=== PATIENT | male | born 1935 | race Caucasian/White ===

== ENCOUNTER 2017-07-06 16:51 | Observation (INO) | payer MEDICARE, BC, SELFPAY ==
[2017-07-06] VITALS (8 sets, daily range): BP systolic 152–193; BP diastolic 87–103; PULSE 53–73; RESP 16–22; TEMP 36.7–36.9; O2SAT 97–100; BMI 22.4; BMI 22.5; BMI 21.6
--- NOTE | 2017-07-06 17:01 | EKG12_ITS ---
Test Reason : CP Blood Pressure : / mmHG Vent. Rate : 071 BPM Atrial Rate : 071 BPM P-R Int : 172 ms QRS Dur : 080 ms QT Int : 388 ms P-R-T Axes : 063 -20 039 degrees QTc Int : 421 ms Normal sinus rhythm Normal ECG Confirmed by LOUIE FOSTER, JOSE G ([id number]), associate entertainment editor RENÉE LUNDBERG ([id number]) on 07/08/2017 1:55:51 PM Referred By: KEHINDE/ELIAZAR Confirmed By:JOSE G PALMA MD
--- NOTE | 2017-07-06 17:05 | ED.VISSUMM ---
- ER Visit Summary Date of Service: 07/06/17 Chief Complaint: Chest pain History of Present Illness: The patient is a 81 M who has no medical problems on no medication has not seen a physician in 15 years. Is a non-smoker. He lives with his . He states he was walking back to the house 2 days ago. The walk back is 1/2 mile incline. At the end of the walk he developed a sensation in his upper mid chest with no radiation or associated symptoms that lasted 30-60 minutes. Yesterday during same walk he had to stop because he felt fatigued. At the end of 1/2 mile he again developed a discomfort funny feeling in his chest that lasted approximately 1 hour. Today he went out to [place] and after 5-10 minutes he developed chest discomfort again with no associated symptoms or radiation. Patient denies any fever, chills night sweats. Patient denies any weight gain or weight loss. Patient denies any ocular, visual or auditory symptoms. Patient denies cough shortness of breath difficulty breathing. There is no history of PE or DVT. He has no history of any leg pain, swelling or discoloration. He denies nausea, vomiting or diarrhea. He denies black or maroon stool. He is on vitamins and does not take aspirin. He is presently having some sensation in his chest. He has no other symptoms. Physical Examination: Vitals remarkable for blood pressure 193/87 otherwise vital signs are normal. HEENT exam is unremarkable. Heart is regular without murmur, gallop or rub. S1 and S2 are normal. Lungs are clear to auscultation with good movement of air bilaterally. Abdomen is soft nontender with no palpable subtle mass abdominal bruit. There is no asymmetry, swelling, discoloration, leg vein distention, palpable cords or tenderness along the distribution of the deep venous system. Neuro exam is nonfocal. Test Results: EKG normal sinus rhythm rate of 71. Two-view chest x-ray is unremarkable. CBC, BMP and troponin are all normal. Emergency Department Course and Treatment: Evaluate patient's chest pain EKG, chest x-ray and blood work was obtained. He did receive aspirin. Dr. Clarke was contacted to see if he would see patient since this is concerning for exertional chest pain and may represent ischemia versus discomfort secondary to elevated blood pressure. Recent blood pressure is 171/91, 1745. Treatment Plan: Dr. Clarke was made aware patient. He states he would see Mr. Marin. Disposition: 23 observation PCU Impression: 1. Exertional chest pain 2. Hypertension new diagnosis This note was generated with Mobile Messenger dictation software. It may contain incorrect words, spelling, and punctuation that were not noted in review of the chart prior to signing ED Disposition - Plan for ED Patient: Chief Complaint: Chest Pain Referrals: Care Physician,No Primary [Primary Care Provider] -
[2017-07-06] MEDS: Aspirin 81 MG TAB.CHEW 324 MG PO (17:07)
--- NOTE | 2017-07-06 17:10 | RAD_ITS ---
STUDY: X-RAY CHEST REASON FOR EXAM: Male, 81 years old. Chest pain TECHNIQUE: Frontal and lateral views of the chest were obtained. COMPARISON: None. FINDINGS: The lungs are hyperinflated. There are no focal airspace opacities. There is no demonstrated pleural abnormality. The cardiac silhouette is normal in size. The mediastinum and hilar regions are unremarkable. Normal visualized pulmonary arteries. There is atherosclerotic calcification of the thoracic aorta. There are diffuse degenerative changes of the visualized spine. There are degenerative changes in both shoulders. There is no demonstrated abnormality of the visualized upper abdomen. RAD/Chest PA and Lateral IMPRESSION: No acute cardiopulmonary abnormalities. Hyperinflation suggests COPD. Electronically Signed: Leanna Kline MD at 17:35 EST Tel Direct: [phone], Service support ,
[2017-07-06 17:20] LABS: Absolute Lymphocyte Count 1.76 X10^3/ul (0.83-4.51); Absolute Neutrophil Count 3.8 X10^3/uL (2.0-7.7); Basophil# 0.02 X10^3/uL; Basophil% 0.3 % (0-1); Eosinophil# 0.03 X10^3/uL; Eosinophils% 0.5 % (0-5); Hematocrit 43.1 % (40-54); Hemoglobin 14.7 g/dl (13.0-16.5); Lymphocyte # 1.76 X10^3/ul (4.0); Lymphocyte % 29.6 % (19-41); Mean Corp Hgb Conc 34.1 g/gl (32-36); Mean Corpuscular Hgb 31.3 pg (27.0-32.0); Mean Corpuscular Volume 91.7 fL (80-94); Mean Platelet Vol. 9.6 fl (6.2-12.0); Monocyte# 0.32 X10^3/uL; Monocyte% 5.4 % (0-10); Platelet Count 203 K/mm3 (150-450); RBC Distribution Width CV 14.9 % (11.6-14.6); RBC Distribution Width SD 48.7 fl (35.1-43.9); White Blood Count 5.9 K/mm3 (4.4-11.0)
[2017-07-06 17:25] LABS: POSITIVE COUNT NO; POSITIVE DIFFERENTIAL NO; POSITIVE MORPHOLOGY NO
[2017-07-06 17:40] LABS: Anion Gap 4 (5-15); BUN 13 mg/dL (7-18); BUN/Creat Ratio 13.1 RATIO (10-20); Calcium,Total 8.8 mg/dL (8.5-10.1); Chloride 106 mmol/L (98-107); EST Glomerular Filtration Rate 76 mL/min (>60); Est Glom Filt Rate - Afr Amer 92 mL/min (>60); Estimated Creatinine Clearance 55.58 ml/min; Glucose 102 mg/dL (74-106); Potassium 4.1 mmol/L (3.5-5.1); Sodium Level 139 mmol/L (136-145)
--- NOTE | 2017-07-06 18:20 | ECHOD_ITS ---
Reason For Study: CHEST PAIN Procedure This was a 2D Doppler, Color Flow transthoracic echocardiogram. Exam performed portable in patient room. Left Ventricle Normal LV size. Left ventricular systolic function is normal. The estimated ejection fraction is 65 %. Transmitral and pulmonary venous doppler flow suggestive of impaired relaxation of left ventricle. Transmitral diastolic flow velocities suggest mild (stage 1) diastolic dysfunction (reversed pattern). No regional wall motion abnormalities noted. Right Ventricle Normal RV size. Normal systolic function. Atria Normal left atrium. Normal right atrium. Mitral Valve Mild diffuse mitral valve thickening. Mild (1+) eccentric mitral valve insufficiency. Tricuspid Valve Normal tricuspid valve. Mild (1+) tricuspid valve insufficiency. Pulmonary artery systolic pressure is 29 mmHg. Aortic Valve Normal aortic valve. Trisinus/trileaflet aortic valve. Pulmonic Valve Normal pulmonic valve. Great Vessels Mildly dilated aortic root. The pulmonary artery is normal size. Inferior vena cava collapse with respiration. Pericardium/Pleural No pericardial effusion. MMode/2D Measurements & Calculations LVIDd: 4.8 cm IVSd: 0.90 cm Ao root diam: 3.8 cm LVIDs: 3.3 cm LVPWd: 1.1 cm LA dimension: 3.6 cm RVDd: 4.3 cm FS: 32.3 % LAV(MOD-bp): 55.2 ml EDV(MOD-sp4): 132.7 ml SV(MOD-sp4): 71.8 ml LAV(MOD-bp) Indexed: 30.5 ml/m2 ESV(MOD-sp4): 60.8 ml LAV(MOD-sp2): 31.5 ml EF(MOD-sp4): 54.1 % LAV(MOD-sp4): 77.3 ml LA A4 area: 22.7 cm2 RA A4 area: 18.5 cm2 Doppler Measurements & Calculations MV E max kostas: 53.2 cm/sec Ao V2 max: 102.7 cm/sec LV V1 max: 71.9 cm/sec MV A max kostas: 72.3 cm/sec Ao max P.2 mmHg LV V1 max P.1 mmHg MV E/A: 0.74 PA V2 max: 100.0 cm/sec PI end-d kostas: 95.5 cm/sec TR max kostas: 246.8 cm/sec TR max P.4 mmHg Interpretation Summary Normal LV size. Left ventricular systolic function is normal. The estimated ejection fraction is 65 %. Transmitral diastolic flow velocities suggest mild (stage 1) diastolic dysfunction (reversed pattern). Mildly dilated aortic root. Mild (1+) tricuspid valve insufficiency. Ordering Physician: Aurelio Clarke Performed By: Kendra Rubio, CHERRICS, RVT
--- NOTE | 2017-07-06 18:26 | PCM.CONS.C ---
Reason for Consult Date of Consultation: 07/06/17 Reason for Consultation: Chest discomfort History of Present Illness: The patient is a 81 year old M who has no medical problems on no medication has not seen a physician in 15 years. He states he was walking back to the house 2 days ago. The walk back is 1/2 mile incline. At the end of the walk he developed a sensation in his upper mid chest with no radiation or associated symptoms that lasted 30-60 minutes. Yesterday during same walk he had to stop because he felt fatigued. At the end of 1/2 mile he again developed a discomfort funny feeling in his chest that lasted approximately 1 hour. Today he went out to [employer] [place] and after 5-10 minutes he developed chest discomfort again with no associated symptoms or radiation. The above he presented to the emergency room where he was evaluated his electrocardiogram demonstrated normal sinus rhythm with a rate of 71 bpm and no acute changes but his blood pressure was noted to be elevated over 1 80 mmHg. Patient denies any fever, chills night sweats. Patient denies any weight gain or weight loss. Patient denies any ocular, visual or auditory symptoms. Patient denies cough shortness of breath difficulty breathing. There is no history of PE or DVT. He has no history of any leg pain, swelling or discoloration. He denies nausea, vomiting or diarrhea. He denies black or maroon stool. He is on vitamins and does not take aspirin. At This time he is pain-free and not having any symptoms. Past Medical History Allergies/Adverse Reactions: Allergies No Known Allergies Allergy (Verified 07/06/17 16:52) Home Medications: Ambulatory Orders Medication Instructions Recorded NK [NK] 07/06/17 - *Family History Maternal History Items: No pertinent history Smoking Status: Never smoker Alcohol: Occasional Drugs: None Review of Systems - Review of Systems General: Denies: Fever, Night Sweats, Fatigue Cardiovascular: Reports: Chest Discomfort with Exertion, Chest Pressure. Denies: Chest Discomfort, Shortness of Breath, Orthopnea, PND, Peripheral Edema, Palpitations, Lightheadedness, Dizziness, Near Syncope, Syncope Respiratory: Denies: Cough, Sputum Production, Hemoptysis Gastrointestinal: Denies: Hematemesis, Hematochezia, Melena Genitourinary: Denies: Dysuria, Hematuria Skin: Denies: Rash Subjectve: Pleasant jovial gentleman in no apparent distress. Objective: Vital Signs Temp Pulse Resp BP Pulse Ox 98.1 F 59 L 20 H 182/88 H 100 07/06/17 16:52 07/06/17 17:51 07/06/17 17:51 07/06/17 17:51 07/06/17 17:51 Oxygen Flow Rate 2 Oxygen Delivery Method Nasal Cannula Weight: 152 lb 1.903 oz Body Mass Index (BMI) 22.4 General: Awake, Alert, Oriented x 3 HEENT: PERRL, EOMI, Sclera Non Icteric Neck: Supple, Good ROM, No Lymph Node Enlargement Lungs: Clear to auscultation Cardiovascular: Regular Rhythm, Normal S1, Normal S2, No Murmurs, No Rubs, No Gallops Vascular: No Carotid Bruits, Normal Femoral Pulses, Normal Radial Pulses, Normal Dorsalis Pedal Pulse, Normal Posterior Tibial Pulses Abdomen: Bowel Sounds Present, Soft, Non Tender, No HSM, No Organomegaly Extremities: No Cyanosis, No Clubbing, No edema Neurological: No Focal Motor or Sensory Deficit 07/06/17 16:55: WBC 5.9, RBC 4.70, Hgb 14.7, Hct 43.1, MCV 91.7, MCH 31.3, MCHC 34.1, RDW 14.9 H, RDW Differential 48.7 H, Plt Count 203, MPV 9.6, Immature Gran % (Auto) 0.200, Neut % (Auto) 64.0, Lymph % (Auto) 29.6, [place] % (Auto) 5.4, Eos % (Auto) 0.5, Baso % (Auto) 0.3, Absolute Neuts (auto) 3.8, Total Counted Not Reportable 07/06/17 16:55: Sodium 139, Potassium 4.1, Chloride 106, Carbon Dioxide 29.0, Anion Gap 4 L, BUN 13, Creatinine 1.00, Est GFR (MDRD) Af Amer 92, Est GFR (MDRD) Non-Af 76, BUN/Creatinine Ratio 13.1, Glucose 102, Calcium 8.8, Troponin I < 0.02 Rhythm: EKG: Normal sinus rhythm with no acute changes rate of 71 bpm Assessment/Plan 1. Chest discomfort He presents with chest discomfort the etiology of which is unknown. He also is noted to have markedly elevated blood pressure and this could account for some of his symptoms. Recommendation at this time would be to start him on an BETH inhibitor and get his blood pressure down obtain cardiac enzymes to rule out myocardial infarction start him on aspirin and clopidogrel and perform an exercise stress test in the morning if his cardiac enzymes are normal. I have discussed the above with him the risks benefits and alternatives and he understands and agrees to proceed. 2. Hypertension To have newly diagnosed hypertension I would aggressively treating the above with antihypertensive medication and then making a decision in a.m. Thank you for allowing me to participate in the care of your patient. Please don't hesitate to call if any issues arise
--- NOTE | 2017-07-06 18:31 | CON.PCM_ITS ---
Reason for Consult Date of Consultation: 07/06/17 Reason for Consultation: Chest discomfort History of Present Illness: The patient is a 81 year old M who has no medical problems on no medication has not seen a physician in 15 years. He states he was walking back to the house 2 days ago. The walk back is 1/2 mile incline. At the end of the walk he developed a sensation in his upper mid chest with no radiation or associated symptoms that lasted 30-60 minutes. Yesterday during same walk he had to stop because he felt fatigued. At the end of 1/2 mile he again developed a discomfort funny feeling in his chest that lasted approximately 1 hour. Today he went out to [place] and after 5-10 minutes he developed chest discomfort again with no associated symptoms or radiation. The above he presented to the emergency room where he was evaluated his electrocardiogram demonstrated normal sinus rhythm with a rate of 71 bpm and no acute changes but his blood pressure was noted to be elevated over 1 80 mmHg. Patient denies any fever, chills night sweats. Patient denies any weight gain or weight loss. Patient denies any ocular, visual or auditory symptoms. Patient denies cough shortness of breath difficulty breathing. There is no history of PE or DVT. He has no history of any leg pain, swelling or discoloration. He denies nausea, vomiting or diarrhea. He denies black or maroon stool. He is on vitamins and does not take aspirin. At This time he is pain-free and not having any symptoms. Past Medical History Allergies/Adverse Reactions: Allergies No Known Allergies Allergy (Verified 07/06/17 16:52) Home Medications: Ambulatory Orders Medication Instructions Recorded NK [NK] 07/06/17 - *Family History Maternal History Items: No pertinent history Smoking Status: Never smoker Alcohol: Occasional Drugs: None Review of Systems - Review of Systems General: Denies: Fever, Night Sweats, Fatigue Cardiovascular: Reports: Chest Discomfort with Exertion, Chest Pressure. Denies : Chest Discomfort, Shortness of Breath, Orthopnea, PND, Peripheral Edema, Palpitations, Lightheadedness, Dizziness, Near Syncope, Syncope Respiratory: Denies: Cough, Sputum Production, Hemoptysis Gastrointestinal: Denies: Hematemesis, Hematochezia, Melena Genitourinary: Denies: Dysuria, Hematuria Skin: Denies: Rash Subjectve: Pleasant jovial gentleman in no apparent distress. Objective: Vital Signs Temp Pulse Resp BP Pulse Ox 98.1 F 59 L 20 H 182/88 H 100 07/06/17 16:52 07/06/17 17:51 07/06/17 17:51 07/06/17 17:51 07/06/17 17:51 Oxygen Flow Rate 2 Oxygen Delivery Method Nasal Cannula Weight: 152 lb 1.903 oz Body Mass Index (BMI) 22.4 General: Awake, Alert, Oriented x 3 HEENT: PERRL, EOMI, Sclera Non Icteric Neck: Supple, Good ROM, No Lymph Node Enlargement Lungs: Clear to auscultation Cardiovascular: Regular Rhythm, Normal S1, Normal S2, No Murmurs, No Rubs, No Gallops Vascular: No Carotid Bruits, Normal Femoral Pulses, Normal Radial Pulses, Normal Dorsalis Pedal Pulse, Normal Posterior Tibial Pulses Abdomen: Bowel Sounds Present, Soft, Non Tender, No HSM, No Organomegaly Extremities: No Cyanosis, No Clubbing, No edema Neurological: No Focal Motor or Sensory Deficit 07/06/17 16:55: WBC 5.9, RBC 4.70, Hgb 14.7, Hct 43.1, MCV 91.7, MCH 31.3, MCHC 34.1, RDW 14.9 H, RDW Differential 48.7 H, Plt Count 203, MPV 9.6, Immature Gran % (Auto) 0.200, Neut % (Auto) 64.0, Lymph % (Auto) 29.6, [place] % (Auto) 5.4 , Eos % (Auto) 0.5, Baso % (Auto) 0.3, Absolute Neuts (auto) 3.8, Total Counted Not Reportable 07/06/17 16:55: Sodium 139, Potassium 4.1, Chloride 106, Carbon Dioxide 29.0, Anion Gap 4 L, BUN 13, Creatinine 1.00, Est GFR (MDRD) Af Amer 92, Est GFR (MDRD ) Non-Af 76, BUN/Creatinine Ratio 13.1, Glucose 102, Calcium 8.8, Troponin I < 0.02 Rhythm: EKG: Normal sinus rhythm with no acute changes rate of 71 bpm Assessment/Plan 1. Chest discomfort He presents with chest discomfort the etiology of which is unknown. He also is noted to have markedly elevated blood pressure and this could account for some of his symptoms. Recommendation at this time would be to start him on an BETH inhibitor and get his blood pressure down obtain cardiac enzymes to rule out myocardial infarction start him on aspirin and clopidogrel and perform an exercise stress test in the morning if his cardiac enzymes are normal. I have discussed the above with him the risks benefits and alternatives and he understands and agrees to proceed. 2. Hypertension To have newly diagnosed hypertension I would aggressively treating the above with antihypertensive medication and then making a decision in a.m. Thank you for allowing me to participate in the care of your patient. Please don't hesitate to call if any issues arise
[2017-07-06] MEDS: Lisinopril 20 MG Tablet PO (19:55)
[2017-07-06] MEDS: Clopidogrel Bisulfate 300 MG Tablet PO (19:55)
[2017-07-07] VITALS (7 sets, daily range): BP systolic 115–152; BP diastolic 65–82; PULSE 46–88; RESP 14–16; TEMP 35.9–36.8; O2SAT 97–100
[2017-07-07 05:13] LABS: Absolute Lymphocyte Count 1.27 X10^3/ul (0.83-4.51); Absolute Neutrophil Count 2.9 X10^3/uL (2.0-7.7); Basophil# 0.03 X10^3/uL; Basophil% 0.6 % (0-1); Eosinophil# 0.06 X10^3/uL; Eosinophils% 1.3 % (0-5); Hematocrit 41.7 % (40-54); Hemoglobin 13.8 g/dl (13.0-16.5); Lymphocyte # 1.27 X10^3/ul (4.0); Lymphocyte % 27.3 % (19-41); Mean Corp Hgb Conc 33.1 g/gl (32-36); Mean Corpuscular Hgb 30.5 pg (27.0-32.0); Mean Corpuscular Volume 92.1 fL (80-94); Mean Platelet Vol. 9.5 fl (6.2-12.0); Monocyte# 0.36 X10^3/uL; Monocyte% 7.7 % (0-10); Neutrophil # 2.94 X10^3/uL (2.7-7.7); Neutrophil % 63.1 % (47-70); Platelet Count 174 K/mm3 (150-450); RBC Distribution Width SD 50.5 fl (35.1-43.9); Red Blood Count 4.53 M/mm3 (4.6-6.2); White Blood Count 4.7 K/mm3 (4.4-11.0)
[2017-07-07] MEDS: Aspirin E.C. 81 MG Tablet PO (05:13)
[2017-07-07] MEDS: Lisinopril 20 MG Tablet PO (05:13)
[2017-07-07] MEDS: 0.9% NaCl Peripheral Flush Adult/Peds IV (05:13)
[2017-07-07 05:18] LABS: POSITIVE COUNT NO; POSITIVE DIFFERENTIAL NO; POSITIVE MORPHOLOGY NO
[2017-07-07 05:22] LABS: Anion Gap 8 (5-15); BUN 12 mg/dL (7-18); BUN/Creat Ratio 13.6 RATIO (10-20); Calcium,Total 8.6 mg/dL (8.5-10.1); Chloride 103 mmol/L (98-107); Creatinine, Serum 0.88 mg/dL (0.70-1.30); EST Glomerular Filtration Rate 88 mL/min (>60); Est Glom Filt Rate - Afr Amer 106 mL/min (>60); Estimated Creatinine Clearance 60.79 ml/min; Glucose 86 mg/dL (74-106); Potassium 3.8 mmol/L (3.5-5.1); Sodium Level 139 mmol/L (136-145)
[2017-07-07 05:27] LABS: International Normalized Ratio 1.1; Prothrombin Time (Protime)PT. 14.1 SECONDS (11.7-14.9)
[2017-07-07 05:28] LABS: Partial Thromboplast Time 28.6 Seconds (24.1-36.2)
--- NOTE | 2017-07-07 05:55 | EKG12_ITS ---
Test Reason : MORNING EKG Blood Pressure : / mmHG Vent. Rate : 053 BPM Atrial Rate : 053 BPM P-R Int : 200 ms QRS Dur : 084 ms QT Int : 458 ms P-R-T Axes : 055 006 027 degrees QTc Int : 429 ms Sinus bradycardia Otherwise normal ECG When compared with ECG of 06-JUL-2017 16:55, MANUAL COMPARISON REQUIRED, DATA IS UNCONFIRMED Confirmed by LOUIE FOSTER, JOSE G ([id number]), story editor RENÉE LUNDBERG ([id number]) on 07/08/2017 2:46:47 PM Referred By: Confirmed By:JOSE G PALMA MD
--- NOTE | 2017-07-07 07:11 | PN.CARD_ITS ---
Subjectve: The patient was seen and evaluated. He has had no chest discomfort since last night. Objective: Vital Signs Temp Pulse Resp BP Pulse Ox 98.2 F 62 16 117/82 H 100 07/07/17 05:15 07/07/17 05:15 07/07/17 05:15 07/07/17 05:15 07/07/17 05:15 Oxygen Delivery Method Room Air Weight: 146 lb 6.4 oz Body Mass Index (BMI) 21.6 Intake and Output for Last 24 Hours 07/05/17 07/06/17 07/07/17 23:59 23:59 23:59 Intake Total 560 / 560 Balance 560 / 560 General: Awake, Alert, Oriented x 3 HEENT: PERRL, EOMI, Sclera Non Icteric Neck: Supple, Good ROM, No Lymph Node Enlargement Lungs: Clear to auscultation Cardiovascular: Regular Rhythm, Normal S1, Normal S2, No Murmurs, No Rubs, No Gallops Vascular: No Carotid Bruits, Normal Femoral Pulses, Normal Radial Pulses, Normal Dorsalis Pedal Pulse, Normal Posterior Tibial Pulses Abdomen: Bowel Sounds Present, Soft, Non Tender, No HSM, No Organomegaly Extremities: No Cyanosis, No Clubbing, No edema Neurological: No Focal Motor or Sensory Deficit 07/06/17 20:39: Troponin I < 0.02 07/07/17 01:08: Troponin I < 0.02 07/07/17 04:40: WBC 4.7, RBC 4.53 L, Hgb 13.8, Hct 41.7, MCV 92.1, MCH 30.5, MCHC 33.1, RDW 15.0 H, RDW Differential 50.5 H, Plt Count 174, MPV 9.5, Immature Gran % (Auto) 0.000, Neut % (Auto) 63.1, Lymph % (Auto) 27.3, [place] % ( Auto) 7.7, Eos % (Auto) 1.3, Baso % (Auto) 0.6, Absolute Neuts (auto) 2.9, Total Counted Not Reportable 07/07/17 04:40: PT 14.1, INR 1.1, APTT 28.6 07/07/17 04:40: Sodium 139, Potassium 3.8, Chloride 103, Carbon Dioxide 28.0, Anion Gap 8, BUN 12, Creatinine 0.88, Est GFR (MDRD) Af Amer 106, Est GFR (MDRD ) Non-Af 88, BUN/Creatinine Ratio 13.6, Glucose 86, Calcium 8.6 Rhythm: EKG: Normal sinus rhythm Assessment/Plan 1. Chest discomfort He presents with chest discomfort the etiology of which is unknown. He also was noted to have markedly elevated blood pressure and this could account for some of his symptoms. Recommendation at this time would be to start him on an BETH inhibitor and get his blood pressure down obtain cardiac enzymes to rule out myocardial infarction start him on aspirin and clopidogrel and perform an exercise stress test in the morning if his cardiac enzymes are normal. Stress test is scheduled for this morning and depending on the results further recommendations will be made. 2. Hypertension His blood pressure this morning appears to be excellent and we will continue to monitor him. Thank you for allowing me to participate in the care of your patient. Please don't hesitate to call if any issues arise
--- NOTE | 2017-07-07 09:08 | PCM.PN.CARD ---
Subjectve: patient seen and evaluated Objective: Vital Signs Temp Pulse Resp BP Pulse Ox 98.2 F 62 16 117/82 H 100 07/07/17 05:15 07/07/17 05:15 07/07/17 05:15 07/07/17 05:15 07/07/17 05:15 Oxygen Delivery Method Room Air Weight: 146 lb 6.4 oz Body Mass Index (BMI) 21.6 Intake and Output for Last 24 Hours 07/05/17 07/06/17 07/07/17 23:59 23:59 23:59 Intake Total 560 / 560 Balance 560 / 560 General: Awake, Alert, Oriented x 3 HEENT: PERRL, EOMI, Sclera Non Icteric Neck: Supple, Good ROM, No Lymph Node Enlargement Lungs: Clear to auscultation Cardiovascular: Regular Rhythm, Normal S1, Normal S2, No Murmurs, No Rubs, No Gallops Vascular: No Carotid Bruits, Normal Femoral Pulses, Normal Radial Pulses, Normal Dorsalis Pedal Pulse, Normal Posterior Tibial Pulses Abdomen: Bowel Sounds Present, Soft, Non Tender, No HSM, No Organomegaly Extremities: No Cyanosis, No Clubbing, No edema Neurological: No Focal Motor or Sensory Deficit 07/06/17 20:39: Troponin I < 0.02 07/07/17 01:08: Troponin I < 0.02 07/07/17 04:40: WBC 4.7, RBC 4.53 L, Hgb 13.8, Hct 41.7, MCV 92.1, MCH 30.5, MCHC 33.1, RDW 15.0 H, RDW Differential 50.5 H, Plt Count 174, MPV 9.5, Immature Gran % (Auto) 0.000, Neut % (Auto) 63.1, Lymph % (Auto) 27.3, [place] % (Auto) 7.7, Eos % (Auto) 1.3, Baso % (Auto) 0.6, Absolute Neuts (auto) 2.9, Total Counted Not Reportable 07/07/17 04:40: PT 14.1, INR 1.1, APTT 28.6 07/07/17 04:40: Sodium 139, Potassium 3.8, Chloride 103, Carbon Dioxide 28.0, Anion Gap 8, BUN 12, Creatinine 0.88, Est GFR (MDRD) Af Amer 106, Est GFR (MDRD) Non-Af 88, BUN/Creatinine Ratio 13.6, Glucose 86, Calcium 8.6 Rhythm: EKG:NSR Assessment/Plan 1. Chest discomfort He presents with chest discomfort the etiology of which is unknown. He also was noted to have markedly elevated blood pressure and this could account for some of his symptoms. Recommendation at this time would be to start him on an BETH inhibitor and get his blood pressure down. He underwent stress testing to 4 and half mets with no evidence of ischemia. Not develop any evidence of ischemia or angina is done this I would suggest that we manage him by controlling his blood pressure. 2. Hypertension His blood pressure this morning appears to be excellent and we will continue to monitor him. Thank you for allowing me to participate in the care of your patient. Please don't hesitate to call if any issues arise. He can be discharged later today.
--- NOTE | 2017-07-07 09:16 | PN.CARD_ITS ---
Subjectve: patient seen and evaluated Objective: Vital Signs Temp Pulse Resp BP Pulse Ox 98.2 F 62 16 117/82 H 100 07/07/17 05:15 07/07/17 05:15 07/07/17 05:15 07/07/17 05:15 07/07/17 05:15 Oxygen Delivery Method Room Air Weight: 146 lb 6.4 oz Body Mass Index (BMI) 21.6 Intake and Output for Last 24 Hours 07/05/17 07/06/17 07/07/17 23:59 23:59 23:59 Intake Total 560 / 560 Balance 560 / 560 General: Awake, Alert, Oriented x 3 HEENT: PERRL, EOMI, Sclera Non Icteric Neck: Supple, Good ROM, No Lymph Node Enlargement Lungs: Clear to auscultation Cardiovascular: Regular Rhythm, Normal S1, Normal S2, No Murmurs, No Rubs, No Gallops Vascular: No Carotid Bruits, Normal Femoral Pulses, Normal Radial Pulses, Normal Dorsalis Pedal Pulse, Normal Posterior Tibial Pulses Abdomen: Bowel Sounds Present, Soft, Non Tender, No HSM, No Organomegaly Extremities: No Cyanosis, No Clubbing, No edema Neurological: No Focal Motor or Sensory Deficit 07/06/17 20:39: Troponin I < 0.02 07/07/17 01:08: Troponin I < 0.02 07/07/17 04:40: WBC 4.7, RBC 4.53 L, Hgb 13.8, Hct 41.7, MCV 92.1, MCH 30.5, MCHC 33.1, RDW 15.0 H, RDW Differential 50.5 H, Plt Count 174, MPV 9.5, Immature Gran % (Auto) 0.000, Neut % (Auto) 63.1, Lymph % (Auto) 27.3, [place] % ( Auto) 7.7, Eos % (Auto) 1.3, Baso % (Auto) 0.6, Absolute Neuts (auto) 2.9, Total Counted Not Reportable 07/07/17 04:40: PT 14.1, INR 1.1, APTT 28.6 07/07/17 04:40: Sodium 139, Potassium 3.8, Chloride 103, Carbon Dioxide 28.0, Anion Gap 8, BUN 12, Creatinine 0.88, Est GFR (MDRD) Af Amer 106, Est GFR (MDRD ) Non-Af 88, BUN/Creatinine Ratio 13.6, Glucose 86, Calcium 8.6 Rhythm: EKG:NSR Assessment/Plan 1. Chest discomfort He presents with chest discomfort the etiology of which is unknown. He also was noted to have markedly elevated blood pressure and this could account for some of his symptoms. Recommendation at this time would be to start him on an BETH inhibitor and get his blood pressure down. He underwent stress testing to 4 and half mets with no evidence of ischemia. Not develop any evidence of ischemia or angina is done this I would suggest that we manage him by controlling his blood pressure. 2. Hypertension His blood pressure this morning appears to be excellent and we will continue to monitor him. Thank you for allowing me to participate in the care of your patient. Please don't hesitate to call if any issues arise. He can be discharged later today.
--- NOTE | 2017-07-07 09:16 | STRESSREP ---
Stress Test Report Exercise myocardial perfusion stress test. 81-year-old man with a history of chest pain. Stress protocol: Resting EKG demonstrates normal sinus rhythm with a rate of 65 bpm normal intervals and noted resting blood pressure is 142/78 mmHg. The patient exercised according to the regular Marcel protocol for total duration of 3 minutes attaining a maximum heart rate of 139 bpm which was 100% of the maximum predicted heart rate. The maximum workload was 4.6 metabolic equivalents. At rest there were no ST or T-wave changes noted to suggest ischemia and at peak exercise no ST or T-wave changes were noted suggest ischemia. No clinical angina was noted the test was terminated due to fatigue. The resting blood pressure was 142/78 with a peak blood pressure 148/60. Myocardial perfusion protocol. 11.1 mCi of technetium 99m sestamibi was injected at rest. She then exercised according to the Marcel protocol for 3 minutes attaining 4.6 metabolic equivalents and at peak exercise 32.9 mCi of technetium 99m sestamibi was injected. Stress images were obtained. Stress and resting images were reconstructed and compared in the short axis vertical long and horizontal long axis. Gated images were also obtained. Perfusion SPECT analysis: Review of the stress images demonstrate normal uptake of tracer noted in all areas of the myocardium on the stress images the resting images demonstrate a similar patent. No evidence of reversibility is noted suggest ischemia no angina was noted. No previous infarct is also noted. Gated SPECT analysis: The ejection fraction is 64%. Conclusion: Normal exercise myocardial perfusion stress test at a low workload. No angina noted. No arrhythmias present. Good blood pressure response to exercise. Preserved ejection fraction.
--- NOTE | 2017-07-07 11:31 | PCM.DC ---
Discharge Activity: Return to Normal Activity May resume sexual activity in: No Restrictions Allergies/Adverse Reactions: Allergies No Known Allergies Allergy (Verified 07/06/17 16:52) Medications to take at Discharge Latanoprost 1 drop RIGHT EYE QHS 07/06/17 Lisinopril [Zestril] 20 mg PO BID #60 tab 07/07/17 The following prescriptions were given: Lisinopril [Zestril] 20 mg PO BID #60 tab Primary Care Physician: Care Physician,No Primary [Primary Care Provider] - Please Follow Up With: dr soria will call for appt Proposed Discharge Date: 07/07/17
== END 2017-07-07 13:14 | disposition home or self-care (01) ==
LOC: ED 17:49 → PCU 18:29
PROVIDERS: Admitting Provider Internal Medicine Cardiovascular Disease; Emergency Provider Emergency Medicine; Visit Provider Internal Medicine Cardiovascular Disease
DX: R07.89 Other chest pain (principal); I10 Essential (primary) hypertension; R00.1 Bradycardia, unspecified
CPT/HCPCS: 36415; 71046; 78452; 80048; 84484; 85025; 85610; 85730; 93005; 93017; 93306; 99218; 99285; A9500; A4216; G0378

== ENCOUNTER 2023-06-19 15:56 | Emergency (ER) | payer MEDICARE, BC, SELFPAY ==
[2023-06-19 15:58] VITALS: BP 150/89; PULSE 90; RESP 18; TEMP 36.6; O2SAT 100; BMI 21.4
--- NOTE | 2023-06-19 16:20 | EDS_ITS ---
HPI History of Present Illness Chief Complaint: Chest Other Informant: patient Onset/Context/Timing Onset: Hours (2-3) Context: Gradual Onset Timing: Continuous Quality: Dull, mild, aching Location: Left lower chest Worsened by: Nothing Relieved by: Sleeping Narrative Narrative: Patient presents with chest discomfort that began approximately 2 to 3 hours prior to arrival. Patient states it came on gradually. Patient describes it as a dull discomfort. Patient states it also feels warm and throbbing. Patient states it is over the left lower chest. Patient states he had a similar episode last week that lasted approximately 1 hour. Patient states nothing makes it worse. Patient states it got better after he laid down and slept. Patient denies any nausea or vomiting. Patient denies any shortness of breath or cough. Patient denies any diaphoresis or lightheadedness. [facility] Medical History (Updated 06/19/23 @ 20:[address] Chang Martinez DO) Dilated aortic root Essential (primary) hypertension Home Medications latanoprost 0.005 % eye drops 1 drp RIGHT EYE QHS glaucoma 07/06/17 [History Last Taken Unknown] lisinopril 20 mg tablet 20 mg PO BID PRN Activity #90 tabs 12/05/22 [Rx Last Taken Unknown] Allergy/AdvReac Type Severity Reaction Status Date / Time No Known Allergies Allergy Verified 06/19/23 15:58 Family History Unknown No problems noted. Surgical History History of appendectomy Social History (Updated 06/19/23 @ 16:58 by Lolis Malone) household members: spouse housing: house Smoking Status: Never smoker alcohol intake: current alcohol intake frequency: a few times a week Alcohol type: wine substance use type: does not use caffeine: Yes Type: coffee and tea what type of physical activity do you participate in: aerobics frequency: 5-6 times per week duration: 15-30 minutes/day seatbelt use: always do you feel safe at home: Yes ROS ROS ED Constitutional Constitutional ED: Denies chills or fever(s) Eyes Eyes: Denies blurry vision or change in vision ENT ENT ED: Denies rhinorrhea or sore throat Cardiovascular Cardiovascular: Reports chest pain; Denies palpitations Respiratory/Chest Respiratory/Chest: Denies cough or dyspnea Gastrointestinal Gastrointestinal: Denies nausea or vomiting Genitourinary Genitourinary ED: Denies dysuria or hematuria Musculoskeletal Musculoskeletal: Reports neck pain; Denies back pain Integumentary Denies abscess or rash Neurologic Neurologic: Denies headache(s) or weakness Allergic/Immunologic Allergic/Immunologic ED: Denies mouth swelling or urticaria EXAM Physical Exam Const Vital Signs: 06/19/23 15:58 Temperature 97.8 F Temperature Source Temporal Pulse Rate 90 Respiratory Rate 18 Blood Pressure 150/89 H Blood Pressure Mean 109 Pulse Ox 100 Oxygen Delivery Method Room Air Positive well nourished and well developed General Appearance ED: well developed and NAD HEENT Reports moist mucous membranes Neck supple and no JVD Chest Wall inspection of chest normal and palpation of chest normal Resp normal respiratory effort and clear to auscultation bilaterally Cardio regular rate and regular rhythm GI non-tender and non-distended Palpation: soft Neuro oriented x3, CN's II-XII intact bilaterally and no sensory deficits noted Sensorium / Orientation: alert Motor Exam: strength 5/5 throughout Psych mental status grossly normal MDM MDM MDM Narrative Medical decision making narrative: Differential diagnosis includes cardiac dysrhythmia, cardiac ischemia, pneumonia, pneumothorax, electrolyte abnormality, musculoskeletal pain, and anxiety. EKG will be obtained to assess for cardiac dysrhythmia and cardiac ischemia. Chest x-ray will be obtained to assess for pneumonia and pneumothorax. CBC will be obtained to assess for leukocytosis and anemia. Basic metabolic profile will be obtained to assess for electrolyte abnormality and renal function. High-sensitivity troponin will be obtained to assess for cardiac ischemia. 2-hour repeat high-sensitivity troponin will be obtained to assess for ongoing cardiac ischemia. Lab Data Attestation: I reviewed the patient's lab results. Lab results narrative: CBC was reviewed and was within normal limits. Basic metabolic profile was reviewed and was within normal limits. High-sensitivity troponin was reviewed and was normal at 8. 2-hour repeat high-sensitivity troponin was reviewed and was normal at 11. Labs: Laboratory Results - last 24 hr 06/19/23 06/19/23 16:54 19:09 WBC 6.0 RBC 4.14 L Hgb 13.4 Hct 40.5 MCV 97.8 H MCH 32.4 H MCHC 33.1 RDW Std Deviation 57.9 H RDW Coeff of Stacy 16.0 H Plt Count 154 MPV 9.9 Immature Gran % (Auto) 0.300 Neut % (Auto) 74.4 H Lymph % (Auto) 18.3 L [place] % (Auto) 6.2 Eos % (Auto) 0.3 Baso % (Auto) 0.5 Absolute Neuts (auto) 4.4 Absolute Lymphs (auto) 1.09 Nucleated RBC % 0 Sodium 140 Potassium 4.1 Chloride 107 Carbon Dioxide 28.0 Anion Gap 5 BUN 18 Creatinine 1.06 Estim Creat Clear Calc 44.78 Est GFR (MDRD) Af Amer 85 Est GFR (MDRD) Non-Af 70 BUN/Creatinine Ratio 17.0 Glucose 95 Calcium 9.2 Troponin I High Sens 8 11 Radiography Chest X-Ray - ED: 2 View, Read by ED Physician, Read by Radiologist, No Acute Disease and Chronic Changes Diagnostic Testing: Clinical Impression(s) from Imaging Studies Chest X-Ray 06/19/23 17:10 IMPRESSION: Severe COPD. No infiltrates or effusions. No acute chest disease. Electronically Signed: Orion Cordon MD at 17:34 EST , PA and lateral chest x-ray was obtained. There are 2 views. On my independent interpretation, lung limon show severe COPD but no acute infiltrate or effusion. There is normal cardiac silhouette. Bony thorax is normal. There is no acute process noted. Radiologist also interpreted the x-ray and agrees. EKG Initial EKG: Attestation: I personally reviewed and interpreted this EKG as follows: Interpretation: Sinus Rhythm (73) and No Acute Injury Pattern Comments: EKG was obtained. On my independent interpretation, it showed a normal sinus rhythm with a rate of 73. MS interval, QRS interval, and QTc intervals were all normal. There is left axis deviation at -73. There are no acute ST or T wave changes. Prior EKG tracings: available for review Prior: Unchanged (04/25/2022) Treatment and Re-Evaluation :: Patient had no further chest pain here in the emergency department. Patient was advised of his findings. Patient has a HEART score of 3. Patient was advised that this is low risk for acute cardiac event. Patient was instructed to follow-up with his primary care physician in 5 to 7 days. Patient understood and was agreeable with the plan. All questions were answered. Discharge Plan Triage Chief Complaint: Chest Other ED Provider: Chang Martinez Dx/Rx/DC Orders Clinical Impression: Essential (primary) hypertension, Chest pain of uncertain etiology Instructions: ED Chest Pain, Uncertain Cause Prescriptions: No Action latanoprost 2.5 ML drops 1 drp RIGHT EYE QHS Patient Comments: instill 1 drop into right eye at bedtime lisinopril 20 mg tablet 20 mg PO BID PRN (Reason: Activity) Qty: 90 3RF Rx Instructions: Takes only when he has been exerting himself. Primary Care Provider: Brandyn Hernadez Referrals: Brandyn Hernadez MD [Primary Care Provider] - 5-7 Days Care Physician,No Primary [Non-Staff] - Disposition Disposition: Home, Self Care
[2023-06-19 17:04] LABS: Absolute Lymphocyte Count 1.09 X10^3/uL (0.83-4.51); Absolute Neutrophil Count 4.4 X10^3/uL (2.0-7.7); Basophil# 0.03 X10^3/uL; Basophil% 0.5 % (0-1); Eosinophil# 0.02 X10^3/uL; Eosinophils% 0.3 % (0-5); Hematocrit 40.5 % (40-54); Hemoglobin 13.4 g/dL (13.0-16.5); Lymphocyte # 1.09 X10^3/ul (0.83-4.51); Lymphocyte % 18.3 % (19-41); Mean Corp Hgb Conc 33.1 g/dL (32-36); Mean Corpuscular Hgb 32.4 pg (27.0-32.0); Mean Corpuscular Volume 97.8 fL (80-94); Mean Platelet Vol. 9.9 fl (6.2-12.0); Monocyte# 0.37 X10^3/uL; Monocyte% 6.2 % (0-10); NRBC Flagged by Analyzer 0 % (0-5); Neutrophil # 4.43 X10^3/uL (2.7-7.7); Neutrophil % 74.4 % (47-70); Platelet Count 154 K/mm3 (150-450); RBC Distribution Width SD 57.9 fl (35.1-43.9); Red Blood Count 4.14 M/mm3 (4.6-6.2)
--- NOTE | 2023-06-19 17:10 | RAD_ITS ---
STUDY: X-RAY CHEST REASON FOR EXAM: Male, 87 years old. Chest pain TECHNIQUE: Frontal and lateral views of the chest. COMPARISON: 07/06/2017. FINDINGS: There is hyperinflation of the lungs consistent with severe chronic obstructive lung disease (COPD). Probable widespread bullous disease. There is no demonstrated pleural abnormality. Normal size heart. Normal mediastinum and suzette. Normal visualized pulmonary arteries. Normal visualized aortic arch and descending thoracic aorta. There are diffuse degenerative changes of the visualized thoracic spine. Normal visualized ribs, clavicles, and shoulders. There is no demonstrated abnormality of the visualized soft tissue structures of the upper abdomen. RAD/Chest PA and Lateral IMPRESSION: Severe COPD. No infiltrates or effusions. No acute chest disease. Electronically Signed: Orion Cordon MD at 17:34 EST ,
[2023-06-19 17:22] LABS: Anion Gap 5 (5-15); BUN 18 mg/dL (7-18); Calcium,Total 9.2 mg/dL (8.5-10.1); Chloride 107 mmol/L (98-107); Creatinine, Serum 1.06 mg/dL (0.70-1.30); EST Glomerular Filtration Rate 70 mL/min (>60); Est Glom Filt Rate - Afr Amer 85 mL/min (>60); Estimated Creatinine Clearance 44.78 ml/min; Glucose 95 mg/dL (74-106); Potassium 4.1 mmol/L (3.5-5.1); Sodium Level 140 mmol/L (136-145); Troponin-I HS (w/2H Reflex) 8 pg/mL (3.0-78.0)
--- OUTSIDE RECORDS SUMMARY | 2023-06-19 18:13 | XMS RPT_ITS | CCD ---
Author Name Unknown Address [address] [place] [address] Organization [facility] Care Team Providers Care Environmental Science Instructor Name Role Phone Pcp, No Primary Care Provider Phan Feliciano MD, Brandyn Zuñiga Primary Care Provider Satya FOSTER, Brandyn Zuñiga Primary Care Provider [phone] BRANDYN FELICIANO Primary Care Unavailable Allergies Allergy Classification Reported Allergen(s) Allergy Type Date of Onset Reaction(s) Facility (5 sources) Penicillins; Translations: [PENICILLINS] Propensity to adverse reactions to drug 3 Other: See Comments [facility] Work Phone: (1 source) Penicillins Propensity to adverse reactions to drug 3 Other: See Comments [facility] Work Phone: Medications Current Medications Medication Drug Class(es) Dates Sig (Normalized) Sig (Original) cephalexin 500 mg oral capsule (1 source) Cephalosporin Antibacterial Start: 03-25-2023 End: 03-30-2023 take 1 capsule by mouth twice daily cephALEXin (KEFLEX) 500 mg capsule Indications: Swelling of finger joint of right hand , Foreign body in skin of left middle finger Take 1 capsule by mouth two times a day for 5 days. 10 capsule 0 03/25/2023 03/30/2023 Active Completed/Discontinued Medications Medication Drug Class(es) Dates Sig (Normalized) Sig (Original) ascorbic acid 500 mg oral tablet (5 sources) Vitamin C take 1 tablet by once daily ascorbic acid, vitamin C, (VITAMIN C) 500 mg tablet Take 500 mg by mouth once daily. 0 Active Problems Active Problems Problem Classification Problem Date Documented Da te Episodic/Chronic Deficiency and other anemia (1 source) Microcytic anemia; Translations: [Iron deficiency anemia, unspecified] Episodic Disorders of lipid metabolism (6 sources) Mixed hyperlipidemia; Translations: [Mixed hyperlipidemia] Onset: 05-02-2010 Chronic Essential hypertension (6 sources) Benign essential hypertension; Translations: [Essential (primary) hypertension] Onset: 05-02-2010 Chronic Glaucoma (6 sources) Suspected bilateral glaucoma; Translations: [Preglaucoma, unspecified, bilateral] Onset: 09-04-2021 Chronic Hyperplasia of prostate (6 sources) Benign prostatic hyperplasia; Translations: [Benign prostatic hyperplasia without lower urinary tract symptoms] Onset: 06-22-2014 Chronic Other connective tissue disease (6 sources) Polymyalgia rheumatica; Translations: [Polymyalgia rheumatica] Onset: 09-06-2002 Chronic Other non-traumatic joint disorders (1 source) Swelling of finger joint; Translations: [Effusion, right hand] 03-25-2023 Episodic Retinal detachments; defects; vascular occlusion; and retinopathy (6 sources) Degenerative disorder of macula ; Translations: [Unspecified macular degeneration] Onset: 09-04-2021 Chronic Superficial injury; contusion (1 source) Superficial foreign body of left middle finger, initial encounter; Translations: [Superficial foreign body (splinter) of finger(s), without major open wound and without mention of infection] 03-25-2023 Episodic Past or Other Problems Problem Classification Problem Date Documented Da te Episodic/Chronic Other and unspecified benign neoplasm (5 sources) Melanocytic nevus of trunk; Translations: [Melanocytic nevi of trunk] Onset: 04-16-2012 04-16-2012 Episodic Other inflammatory condition of skin (5 sources) Intertrigo; Translations: [Erythema intertrigo] Onset: 02-08-2009 02-08-2009 Episodic Other skin disorders (6 sources) Actinic keratosis; Translations: [Actinic keratosis] Onset: 07-21-2007 Episodic Residual codes; unclassified (5 sources) Family history of prostate cancer; Translations: [Family history of malignant neoplasm of prostate] Onset: 06-22-2014 06-22-2014 Episodic Results Test Name Value Interpretation Reference Range Facil ity Vital Signs Date Time Vital Sign Value Performing Clinician Diamond walker 03-25-2023 12:56-0500 Body temperature 97.81 [degF] Mateo Song MD Work Phone: [facility] 03-25-2023 12:56-0500 Body weight 66.41 kg Mateo Song MD Work Phone: [facility] 03-25-2023 12:56-0500 Diastolic blood pressure 58 mm[Hg] Mateo Song MD Work Phone: [facility] 03-25-2023 12:56-0500 Heart rate 92 /min Mateo Song MD Work Phone: [facility] 03-25-2023 12:56-0500 Respiratory rate 21 /min Mateo Song MD Work Phone: [facility] 03-25-2023 12:56-0500 SaO2% (BldA) [Mass fraction] 95 % Mateo Song MD Work Phone: [facility] 03-25-2023 12:56-0500 Systolic blood pressure 110 mm[Hg] Mateo Song MD Work Phone: [facility] 09-04-2021 13:02-0400 Body weight 67.59 kg Brandyn Feliciano MD Work Phone: [facility] 09-04-2021 13:02-0400 Diastolic blood pressure 72 mm[Hg] Brandyn Feliciano MD Work Phone: [facility] 09-04-2021 13:02-0400 Heart rate 68 /min Brandyn Feliciano MD Work Phone: [facility] 09-04-2021 13:02-0400 Systolic blood pressure 136 mm[Hg] Brandyn Feliciano MD Work Phone: [facility] Encounters Encounter Date Encounter Type Care Provider Facility Start: 03-25-2023 End: 03-25-2023 ambulatory BRANDYN FELICIANO Facility:[facility] Start: 03-25-2023 End: 03-25-2023 Patient encounter procedure Mateo Song MD Work Phone: [facility] Plan of Treatment Date Care Activity Detail Author Start: 09-11-2024 DIABETES SCREEN DIABETES SCREEN [facility] Start: 09-11-2024 Diabetes Screening Diabetes Screenin g [facility] Start: 01-09-2023 Influenza vaccination Influenza Vacc ine (#1) [facility] Start: 05-11-2022 Advance Directive Discussion Advance Directive Discussion [facility] Start: 05-11-2022 Depression Assessment Depression Ass essment [facility] Start: 03-06-2022 End: 05-06-2022 LIPID PANEL BASIC LIPID PANEL BASIC Lab Routine Essential hypertension, benign Expected: 03/06/2022, Expires: 05/06/2022 [facility] Work Phone: Payers Date Payer Category Payer Unknown [employer] PPO [id number] 2009-Present [phone] [address] [place] [address] PPO [id number] 2009 Unknown [employer] F[employer] PPO [id number] 2009-Present [phone] [address] [place] [address] PPO [id number] 2009 Unknown [id number] 1999 Medicare MEDICARE MEDICAR E A AND B [id number] 1999-Present [phone] [place] [address] Medicare [id number] 1999 Medicare MEDICARE MEDICAR E A AND B [id number] 1999-Present [phone] [place] [address] Medicare [id number] 1999 Medicare [id number] Social History Date Type Detail Facility Start: 05-10-2011 Tobacco smoking stat us RIIS Never smoked tobacco [facility] Start: 09-04-2021 End: 03-25-2023 Alcohol intake Current drinker of alcohol (finding) [facility] Start: 1935 Sex Assigned At Not on file [facility] Start: 08-25-2021 End: 09-04-2021 Exposure to SARS-CoV-2 (event) Not sure [facility] Start: 05-10-2011 Tobacco use and exposure Smokeless tobacco non-user [facility] Work Phone: Start: 04-17-2020 End: 03-25-2023 History of Social function [facility] Start: 04-17-2020 End: 03-25-2023 Tobacco use panel [facility] National Score (1-100), lower number is lower risk Not on file [facility] Clinical Notes 06-19-2016 to 03-25-2023 Mateo Song MD - 03/25/2023 12:59 PM ESTTelephone Encounter - Ky Dinero [facility] - 10/09/2021 1:40 PM EDTTelephone Encounter - Ky Dinero [facility] - 10/09/2021 1:36 PM EDT Note Date & Type Note Facility 03-25-2023 Note HNO ID: [id number] Author: Mateo Song MD Service: ? Author Type: Physician Type: Progress Notes Filed: 03/25/2023 1:26 PM Note Text: Patient presents with: Mass: Possible infected splinter in right hand middle finger x 3 weeks HPI: Skin Lesion: Location: Right middle finger Duration: got a splinter in the finger gardening 3 weeks ago Pruritis/Pain: no Change: has a callus Drainage/blister/pustule/ulcer ation: pulled a splinter out, no drainage, no fever Treatment: picked out splinter, tried again assuming he had not gotten all of it. MEDICATIONS: lisinopril (ZESTRIL) 20 mg tablet TAKE 1 TABLET BY MOUTH TWICE A DAY NEEDED FOR ACTIVITY Zinc 50 mg tab Take 50 mg by mouth once daily. ascorbic acid, vitamin C, (VITAMIN C) 500 mg tablet Take 500 mg by mouth once daily. bacitracin-polymyxin b (POLYSPORIN) ophthalmic ointment Use 1 application in the right eye three times daily. meloxicam (MOBIC) 15 mg tablet Take 1 tablet by mouth once daily. latanoprost (XALATAN) 0.005 % ophthalmic solution Use 1 Drop in both eyes once daily. Qhnwffcumxs-Tvsznrmkf-Xol C-Mn (GLUCOSAMINE CHONDROITIN MAXSTR) 500-400 mg cap Take 1 capsule by mouth once daily. multivitamin (DAILY MULTIPLE) tablet Take 1 tablet by mouth once daily. Magnesium 250 mg Tab Take 1 tablet by mouth once daily. OTC NUTRITIONAL SUPPLEMENT Take by mouth. takes 2 tablets a week Potassium 99 mg Tab Take 1 capsule by mouth as needed. Saw Lamont 160 mg capsule Take 160 mg by mouth once daily. ALLERGIES: ALLERGIES Allergen Reactions Penicillins Other: See Comments The patient is unsure but about 10 years ago he took PCN after a dental procedure and he developed a rheumatic muscle condition. VITALS: BP 110/58 Pulse 92 Temp 36.6 ?C (97.8 ?F) Resp 21 Wt 66.4 kg (146 lb 6.4 oz) SpO2 95% BMI 22.93 kg/m? PE: Pleasant, in no acute distress. Finger: right middle. 1.5cm raised area of the proximal palmar phalange near the DIP joint. Central 1mm dark eschar, no erythema. Probable fluid collection below the dermis. Minimal ROM of the 3rd-5th DIP joints. ASSESSMENT/PLAN: 1. Foreign body in skin of left middle finger - ICD9: 915.6, ICD10: S60.453A (primary diagnosis) 2. Swelling of finger joint of right hand - ICD9: 719.04, ICD10: M25.441 The lesion was pricked with an 18g syringe needle and expressed clear charles syrupy fluid with a few small white solid bits. Possible gouty tophus vs finger abscess. - CEPHALEXIN 500 MG CAPSULE - ABSCESS AND WOUND CULTURE WITH GRAM STAIN He declines uric acid testing. He does agree to follow up with orthopedic surgery if the area worsens. His recently broke her hip so he can call her orthopedist's office for an appointment if needed. Mateo Song MD [facility] 03-25-2023 History of Presen t illness Narrative Patient presents with: Mass: Possible infected splinter in right hand middle finger x 3 weeks HPI: Skin Lesion: Location: Right middle finger Duration: got a splinter in the finger gardening 3 weeks ago Pruritis/Pain: no Change: has a callus Drainage/blister/pustule/ulcer ation: pulled a splinter out, no drainage, no fever Treatment: picked out splinter, tried again assuming he had not gotten all of it. MEDICATIONS: lisinopril (ZESTRIL) 20 mg tablet TAKE 1 TABLET BY MOUTH TWICE A DAY NEEDED FOR ACTIVITY Zinc 50 mg tab Take 50 mg by mouth once daily. ascorbic acid, vitamin C, (VITAMIN C) 500 mg tablet Take 500 mg by mouth once daily. bacitracin-polymyxin b (POLYSPORIN) ophthalmic ointment Use 1 application in the right eye three times daily. meloxicam (MOBIC) 15 mg tablet Take 1 tablet by mouth once daily. latanoprost (XALATAN) 0.005 % ophthalmic solution Use 1 Drop in both eyes once daily. Wavnncdylxo-Jygjnwqhe-Aul C-Mn (GLUCOSAMINE CHONDROITIN MAXSTR) 500-400 mg cap Take 1 capsule by mouth once daily. multivitamin (DAILY MULTIPLE) tablet Take 1 tablet by mouth once daily. Magnesium 250 mg Tab Take 1 tablet by mouth once daily. OTC NUTRITIONAL SUPPLEMENT Take by mouth. takes 2 tablets a week Potassium 99 mg Tab Take 1 capsule by mouth as needed. Saw Lamont 160 mg capsule Take 160 mg by mouth once daily. ALLERGIES: ALLERGIES Allergen Reactions Penicillins Other: See Comments The patient is unsure but about 10 years ago he took PCN after a dental procedure and he developed a rheumatic muscle condition. VITALS: BP 110/58 Pulse 92 Temp 36.6 C (97.8 F) Resp 21 Wt 66.4 kg (146 lb 6.4 oz) SpO2 95% BMI 22.93 kg/m PE: Pleasant, in no acute distress. Finger: right middle. 1.5cm raised area of the proximal palmar phalange near the DIP joint. Central 1mm dark eschar, no erythema. Probable fluid collection below the dermis. Minimal ROM of the 3rd-5th DIP joints. ASSESSMENT/PLAN: 1. Foreign body in skin of left middle finger - ICD9: 915.6, ICD10: S60.453A (primary diagnosis) 2. Swelling of finger joint of right hand - ICD9: 719.04, ICD10: M25.441 The lesion was pricked with an 18g syringe needle and expressed clear charles syrupy fluid with a few small white solid bits. Possible gouty tophus vs finger abscess. - CEPHALEXIN 500 MG CAPSULE - ABSCESS AND WOUND CULTURE WITH GRAM STAIN He declines uric acid testing. He does agree to follow up with orthopedic surgery if the area worsens. His recently broke her hip so he can call her orthopedist's office for an appointment if needed. Mateo Song MD documented in this encounter [facility] 10-09-2021 Miscellaneous Notes Letter sent. Ky Dinero LPN ----- Message from Dominique Sahu APRN.RING MAKING MACHINE OPERATOR sent at 10/08/2021 4:45 PM EDT ----- Can please let patient know via phone or letter that the stool sample was negative for blood. documented in this encounter [facility] 09-20-2021 Miscellaneous Notes Patient notified of results. Melanie Herring MA ----- Message from Linda Betancur PA-C sent at 09/20/2021 6:52 AM EDT ----- Please advise borderline anemia versus some lab variance with decreased RBC but normal hemoglobin and hematocrit. At this point does not require any treatment. Thanks, Wyatt Betancur PA-C documented in this encounter [facility] 09-12-2021 Miscellaneous Notes notified. Advised to have patient contact office if any questions. Melanie Herring MA Please advise labs look good except hgb has dropped. Sometimes this is lab variance, but we should recheck CBC and iron levels, and check stool for occult bleeding. Telephone on 09/12/21 CBC IRON + TIBC FERRITIN BLD FECAL OCCULT BLOOD TEST Thanks, Wyatt Betancur PA-C documented in this encounter [facility] 09-04-2021 History of Presen t illness Narrative Patient presents with: Establish Care: Rupa transfer HPI: Patient presents today for office visit for establishing care. Last saw Dr. Goode a decade ago. Has not seen a PCP since then. Has been feeling well. nothing hurts. Last saw rheum years ago. Used to be remotely on steroids. Has a remote hx of hypertension, hld and PMR. Had previously been seen for derm issues. Has a hx of bph. Urine has been good. Still sees Dr. Alberts bp is well controlled today. Checks his bp at home once a month. No chest pain or shortness of breath. No dizziness. He sees Dr. Chawla for glaucoma/also sees a retinal specialist for macular degeneration. Still plays softball. Plays second base. MEDICATIONS: Current Outpatient Medications Medication Sig Zinc 50 mg tab Take 50 mg by mouth once daily. ascorbic acid, vitamin C, (VITAMIN C) 500 mg tablet Take 500 mg by mouth once daily. latanoprost (XALATAN) 0.005 % ophthalmic solution Use 1 Drop in both eyes once daily. Mciekwwggue-Vccjxsopf-Ljv C-Mn (GLUCOSAMINE CHONDROITIN MAXSTR) 500-400 mg cap Take 1 capsule by mouth once daily. multivitamin (DAILY MULTIPLE) tablet Take 1 tablet by mouth once daily. Magnesium 250 mg Tab Take 1 tablet by mouth once daily. bacitracin-polymyxin b (POLYSPORIN) ophthalmic ointment Use 1 application in the right eye three times daily. meloxicam (MOBIC) 15 mg tablet Take 1 tablet by mouth once daily. OTC NUTRITIONAL SUPPLEMENT Take by mouth. takes 2 tablets a week Potassium 99 mg Tab Take 1 capsule by mouth as needed. Kin Lamont 160 mg capsule Take 160 mg by mouth once daily. No current facility-administered medications for this visit. ALLERGIES: ALLERGIES Allergen Reactions Penicillins Other: See Comments The patient is unsure but about 10 years ago he took PCN after a dental procedure and he developed a rheumatic muscle condition. PAST MEDICAL HISTORY Diagnosis Date Essential hypertension, benign 05/02/2010 Hyperlipidemia LDL goal < 130 05/02/2010 Polymyalgia rheumatica (HCC) PAST SURGICAL HISTORY Procedure Laterality Date APPENDECTOMY PAST SURGICAL HISTORY OF bilateral bunionectomy FAMILY HISTORY Problem Relation Age of Onset Hypertension Mother Cancer Brother prostate cancer COPD Father Alcohol/Drug Father Social History Tobacco Use Smoking status: Never Smoker Smokeless tobacco: Never Used Substance Use Topics Alcohol use: Yes Alcohol/week: 7.5 - 10.0 standard drinks Types: 3 - 4 Glasses of Wine (5oz) per week Drug use: No Reviewed current medications, allergies, past medical history, surgical history, family history and social history today. REVIEW OF SYSTEMS Does not use any ambulatory devices. RESPIRATORY: Negative for cough, hemoptysis, wheezing, COPD, dyspnea or shortness of breath CARDIOVASCULAR: Negative for chest pain, leg swelling, hypertension, CHF or palpitations GI: Negative for blood in stools or black stools, change in bowel habit PSYCH: Negative for sleep disturbance, mood disorder and recent psychosocial stressors All other reviewed and negative other than HPI. HEALTH MAINTENANCE: Reviewed health maintenance issues today and recommended the following in detail. COVID-19 VACCINE- has had two vaccines. Had booster just in May. SHINGRIX VACCINE(1 of 2) -declines PNEUMOVAX AGE 65 AND OVER WITH 5YR -declines ADVANCE DIRECTIVE DISCUSSION-he is unsure that he has it. Discussed. Gave him a copy of [employer] form VITALS: BP 136/72 Pulse 68 Wt 67.6 kg (149 lb) BMI 23.34 kg/m Last 4 Encounter Wt Readings: Date: Wt: 09/04/2021 67.6 kg (149 lb) 08/28/2018 68.9 kg (152 lb) 10/11/2014 70.8 kg (156 lb) 06/22/2014 68.5 kg (151 lb) PHYSICAL EXAMINATION: General appearance: Well appearing, alert, in no acute distress, well-hydrated, well nourished. Skin: Skin color, texture, turgor normal, no suspicious rashes or lesions Head: Normocephalic, no masses, lesions, tenderness or abnormalities Lungs: Lungs clear to auscultation. No wheezing, rhonchi, rales Heart: RRR without murmur, gallop, or rubs. No ectopy Abdomen: Normal abdominal exam, Abdomen soft, non-tender. Bowel sounds normal. No masses, organomegaly Extremities: No deformities, edema, skin discoloration, clubbing or cyanosis. Good capillary refill. Musculoskeletal: No joint swelling, deformity, or tenderness Peripheral pulses: Normal Neuro: Negative. ASSESSMENT/PLAN: 1. Essential hypertension, benign - ICD9: 401.1, ICD10: I10 (primary diagnosis) - good control - Follow off of meds. - Goal of BP <130/80 - CBC + DIFF - COMP METABOLIC PANEL - LIPID PANEL BASIC 2. Polymyalgia rheumatica (HCC) - ICD9: 725, ICD10: M35.3 - in remission. 3. Mixed hyperlipidemia - ICD9: 272.2, ICD10: E78.2 - to be determined upon return of lab results - Encouraged following a low fat, low cholesterol diet. 4. Benign prostatic hyperplasia without lower urinary tract symptoms - ICD9: 600.00, ICD10: N40.0 - stable. 5. Glaucoma suspect of both eyes - ICD9: 365.00, ICD10: H40.003 - per optho 6. Macular degeneration, unspecified laterality, unspecified type - ICD9: 362.50, ICD10: H35.30 - per opth 7. ACTINIC KERATOSES (Premalignant AK's) - ICD9: 702.0, ICD10: L57.0 - per derm Brandyn Feliciano RTO in annually and prn. documented in this encounter [facility] documented as of this encounter (statuses as of 09/04/2021) [facility] History of Past illness Narrative* Problem Noted Date Resolved Date Trigger finger, right little finger 06/19/2016 09/04/2021 Viral warts, unspecified 01/28/2013 022 Xerosis cutis 01/28/2013 09/04/2021 Scars 01/28/2013 09/04/2021 Closed dislocation of interp halangeal joint of fifth finger of left hand 01/11/2013 09/04/2021 Solar Lentigines 04/16/2012 09/04/2021 Actinic skin damage 04/16/2012 09/04/2021 Seborrheic Keratoses 04/16/2012 09/04/2021 Contact Dermatitis and Other Eczema, due to Unsp ec 02/08/2009 09/04/2021 Contact dermatitis and other eczema due to other specified agent 02/08/2009 09/04/2021 Inflamed seborrheic keratosis 07/21/2007 SOLAR LENGINES///DYSCHROMIA OTHER 07/21/2007 04/16/2012 Other chronic dermatitis due to solar radiation 07/21/2007 04/16/2012 documented as of this encounter (statuses as of 09/12/2021) [facility] History of Past illness Narrative* Problem Noted Date Resolved Date Trigger finger, right little finger 06/19/2016 09/04/2021 Viral warts, unspecified 01/28/2013 022 Xerosis cutis 01/28/2013 09/04/2021 Scars 01/28/2013 09/04/2021 Closed dislocation of interp halangeal joint of fifth finger of left hand 01/11/2013 09/04/2021 Solar Lentigines 04/16/2012 09/04/2021 Actinic skin damage 04/16/2012 09/04/2021 Seborrheic Keratoses 04/16/2012 09/04/2021 Contact Dermatitis and Other Eczema, due to Unsp ec 02/08/2009 09/04/2021 Contact dermatitis and other eczema due to other specified agent 02/08/2009 09/04/2021 Inflamed seborrheic keratosis 07/21/2007 SOLAR LENGINES///DYSCHROMIA OTHER 07/21/2007 04/16/2012 Other chronic dermatitis due to solar radiation 07/21/2007 04/16/2012 documented as of this encounter (statuses as of 09/20/2021) [facility] History of Past illness Narrative* Problem Noted Date Resolved Date Trigger finger, right little finger 06/19/2016 09/04/2021 Viral warts, unspecified 01/28/2013 022 Xerosis cutis 01/28/2013 09/04/2021 Scars 01/28/2013 09/04/2021 Closed dislocation of interp halangeal joint of fifth finger of left hand 01/11/2013 09/04/2021 Solar Lentigines 04/16/2012 09/04/2021 Actinic skin damage 04/16/2012 09/04/2021 Seborrheic Keratoses 04/16/2012 09/04/2021 Contact Dermatitis and Other Eczema, due to Unsp ec 02/08/2009 09/04/2021 Contact dermatitis and other eczema due to other specified agent 02/08/2009 09/04/2021 Inflamed seborrheic keratosis 07/21/2007 SOLAR LENGINES///DYSCHROMIA OTHER 07/21/2007 04/16/2012 Other chronic dermatitis due to solar radiation 07/21/2007 04/16/2012 documented as of this encounter (statuses as of 10/09/2021) [facility] History of Past illness Narrative* Problem Noted Date Diagnosed Date Resolved Date Trigger finger, right little finger 06/19/2016 09/04/2021 Viral warts, unspecified 01/28/2013 Xerosis cutis 01/28/2013 09/04/2021 Scars 01/28/2013 09/04/2021 Closed dislocation of interp halangeal joint of fifth finger of left hand 01/11/2013 09/04/2021 Solar Lentigines 04/16/2012 09/04/2021 Actinic skin damage 04/16/2012 09/05/19 22 Seborrheic Keratoses 04/16/2012 022 Contact Dermatitis and Other Eczema, due to Unspec 02/08/2009 09/04/2021 Contact dermatitis and other eczema due to other specified agent 02/08/2009 09/04/2021 Inflamed seborrheic keratosis 07/21/2007 09/04/2021 SOLAR LENGINES///DYSCHROMIA OTHER 07/21/2007 04/16/2012 Other chronic dermatitis due to solar radiation 07/21/2007 04/16/2012 documented as of this encounter (statuses as of 03/25/2023) [facility] Essential hypertension, benign- Primary Polymyalgia rheumatica (HCC) Polymyalgia rheumatica Mixed hyperlipidemia Benign prostatic hyperplasia without lower urinary tract symptoms Glaucoma suspect of both eyes Preglaucoma, unspecified Macular degeneration, unspecified laterality, unspecified type ACTINIC KERATOSES (Premalignant AK's) Actinic keratosis [facility] Diagnosis Microcytic anemia- Primary Iron deficiency anemia, unspecified [facility] Diagnosis Foreign body in skin of left middle finger- Primary Swelling of finger joint of right hand documented in this encounter [facility] Summary Purpose Family History No Family History Records Found Advance Directives No Advanced Directives Records Found Additional Source Comments Source Comments (unrecognize d section and content) In the event this informatio n is protected by the Federal Confidentiality of Alcohol and Drug Abuse Patient Records regulations: The Federal rules restrict any use of the information to criminally investigate or prosecute any alcohol or drug abuse patient.[facility] the event this information is protected by the Federal Confidentiality of Alcohol and Drug Abuse Patient Records regulations: The Federal rules restrict any use of the information to criminally investigate or prosecute any alcohol or drug abuse patient.[facility] Center[facility] the event this information is protected by the Federal Confidentiality of Alcohol and Drug Abuse Patient Records regulations: The Federal rules restrict any use of the information to criminally investigate or prosecute any alcohol or drug abuse patient.[facility] the event this information is protected by the Federal Confidentiality of Alcohol and Drug Abuse Patient Records regulations: The Federal rules restrict any use of the information to criminally investigate or prosecute any alcohol or drug abuse patient.[facility] the event this information is protected by the Federal Confidentiality of Alcohol and Drug Abuse Patient Records regulations: The Federal rules restrict any use of the information to criminally investigate or prosecute any alcohol or drug abuse patient.[facility] Reason for Visit (unrecogniz ed section and content) Reason Comments Results Reason Comments Mass Possible infected sp linter in right hand middle finger x 3 weeks Care Teams (unrecognized sec tion and content) Environmental Science Instructor Relationship Specialty Start Date End Date Brandyn Feliciano MD [address] [place], [place] [id number] PCP - General Family Practice 09/12/21 Environmental Science Instructor Relationship Specialty Start Date End Date Brandyn Feliciano MD [address] [place], [place] [id number] PCP - General Family Practice 09/12/21 Environmental Science Instructor Relationship Specialty Start Date End Date Brandyn Feliciano MD [address] [place], [place] [phone] PCP - General Family Practice 09/12/21 Environmental Science Instructor Relationship Specialty Start Date End Date Brandyn Feliciano MD [address] [place] [address] PCP - General Family Medicine 09/12/21 (unrecognized sect ion and content) No Status Records Found INFORMATION SOURCE (unrecogn ized section and content) FOR RECORDS PERTAINING TO PATIENTS WHO ARE OR HAVE BEEN ENROLLED IN A CHEMICAL DEPENDENCY/SUBSTANCEABUSE PROGRAM, SOME INFORMATION MAY BE OMITTED. This clinical summary was aggregated from multiple sources. Caution should be exercised in using it in the provision of clinical care. This summary normalizes information from multiple sources, and as a consequence, information in this document may materially change the coding, format and clinical context of patient data. In addition, data may be omitted in some cases. CLINICAL DECISIONS SHOULD BE BASED ON THE PRIMARY CLINICAL RECORDS. [facility] [employer] [facility]. provides no warranty or guarantee of the accuracy or completeness of information in this document.
[2023-06-19 19:02] LABS: Reflex Troponin-HS? (from REC) Y
[2023-06-19 19:36] LABS: Troponin-I HS 11 pg/mL (3.0-78.0)
[2023-06-19 20:29] VITALS: BP 152/106; PULSE 74; RESP 18; O2SAT 95
== END 2023-06-19 20:48 | disposition home or self-care (01) ==
PROVIDERS: Emergency Provider Emergency Medicine; PCP Family Medicine; Visit Provider Emergency Medicine
DX: R07.9 Chest pain, unspecified (principal); I10 Essential (primary) hypertension; M54.2 Cervicalgia
CPT/HCPCS: 71046; 80048; 84484; 85025; 93005; 99284; J7030; A4216